=== PATIENT | male | born 1980 | race Caucasian/White ===

== ENCOUNTER 2018-04-02 10:42 | Outpatient (CLI) | payer OTHER ==
--- NOTE | 2018-04-02 13:14 | RAD ---
TWO VIEWS CERVICAL SPINE: Date: 04-02-18 Comparison: None. History: Cervical spine pain. FINDINGS: There is mild degenerative change at the atlantoaxial interspace. There is midcervical spine facet hy pertrophy bilaterally, left greater than right, most prominent at C3-4, C4-5, and C5-6. No significant anterolisthesis or retrolisthesis is seen. There is no prevertebral soft tissue swelli ng. There is mild disc space narrowing at C4-5 and C5-6. IMPRESSION: Mild degenerative changes. No acute fracture or dislocation. If there are radicular symptoms, MRI may be beneficial. POS: [facility]
--- NOTE | 2018-04-02 13:16 | RAD ---
SI JOINTS THREE VIEWS: History: Sacroiliitis. FINDINGS: SI joints are patent and symmetric. No evidence of pathologic sclerosis identified along either SI estela int. IMPRESSION: Unremarkable SI joint. POS: [facility]
== END 2018-04-02 10:43 | disposition home or self-care (01) ==
LOC: BICRAD 10:42
PROVIDERS: ATTEND Internal Medicine Rheumatology
DX: M46.1 Sacroiliitis, not elsewhere classified (principal); M54.2 Cervicalgia; M47.812 Spondylosis without myelopathy or radiculopathy, cervical region
CPT/HCPCS: 72040; 72202